=== PATIENT | male | born 1965 | race Caucasian/White ===

== ENCOUNTER 2020-04-03 09:55 | Day surgery (SDC) | payer OTHER ==
[~2020-04-03] VITALS: Ht 177.8 cm; Wt 83.4 kg
[~2020-04-03 09:55] MED LIST: BUPIVACAINE/PF 0.5% ONE; EPINEPHRINE 1 MG/ML, 1ML ONE; LIDOCAINE/PF 1%-EPI 1:200K, 30 ML ONE
[2020-04-03] MEDS ORDERED: LISI5TAB7 PO (10:37)
[2020-04-03] MEDS ORDERED: ROSU40TA PO (10:37)
[2020-04-03] MEDS ORDERED: DAPA10TA PO (10:37)
[2020-04-03] MEDS ORDERED: LACTATED RINGERS 1,000 ML IV SCH ×2 (10:40→11:45)
[2020-04-03 10:51] VITALS: BP 158/91
[2020-04-03] MEDS ORDERED: CHLORHEXIDINE 15 ML UDC MM ONE (11:00)
[2020-04-03] MEDS ORDERED: LIDOCAINE-MPF 1%, 2ML INFIL ONE (11:00)
[2020-04-03] MEDS ORDERED: MIDAZOLAM 1 MG/ML, 2ML ONE (11:16)
[2020-04-03] MEDS ORDERED: FENTANYL PF 100 MCG/2ML ONE (11:16)
[2020-04-03 11:22] LABS: ALBUMIN 4.4 g/dL (3.4-5.0); ANION GAP 9 mmol/L (5-15); CALCIUM 9.3 mg/dL (8.5-10.1); CHLORIDE 109 mmol/L (98-107)
[2020-04-03 11:27] LABS: ALANINE AMINOTRANSFERASE 57 U/L (12-78); ALKALINE PHOSPHATASE 53 U/L (45-117); CREATININE 0.86 mg/dL (0.7-1.3); TOTAL PROTEIN 7.8 g/dL (6.4-8.2)
[2020-04-03] MEDS ORDERED: hydrALAzine 20 MG/ML, 1ML IV PRN (11:30)
[2020-04-03] MEDS ORDERED: OXYcodone 5 MG/5 ML ORAL.SOL UDC PO PRN (11:30)
[2020-04-03] MEDS ORDERED: FENTANYL PF 100 MCG/2ML IV PRN (11:30)
[2020-04-03] MEDS ORDERED: MEPERIDINE/PF 25MG/0.5ML IVPush PRN (11:30)
[2020-04-03] MEDS ORDERED: MIDAZOLAM 1 MG/ML, 2ML IV PRN (11:30)
[2020-04-03] MEDS ORDERED: PROMETHAZINE 25 MG/ML, 1ML IVPush PRN (11:30)
[2020-04-03] MEDS ORDERED: HYDROmorphone 1 MG/ML, 1ML INJ IVPush PRN (11:30)
[2020-04-03] MEDS ORDERED: ACETAMINOPHEN 325 MG TABLET PO PRN (11:30)
[2020-04-03] MEDS ORDERED: LABETALOL 5MG/ML, 20ML IV PRN (11:30)
[2020-04-03] MEDS ORDERED: ALBUTEROL SULFATE 2.5 MG/3 ML NPPB PRN (11:30)
[2020-04-03] MEDS ORDERED: KETOROLAC 30 MG/1 ML ONE (11:42)
[2020-04-03] MEDS ORDERED: BUPIVACAINE/PF-EPI 0.5% 1:200K INFIL ONE (11:58)
[2020-04-03] MEDS ORDERED: LIDOCAINE/PF 1%-EPI 1:200K, 30 ML INFIL ONE (11:58)
[2020-04-03] MEDS ORDERED: ONDANSETRON 2MG/ML, 2ML ONE (12:11)
[2020-04-03] MEDS ORDERED: ROCURONIUM 10MG/ML,5ML ONE (12:11)
[2020-04-03] MEDS ORDERED: DEXAMETHASONE 4 MG/ML, 1ML ONE (12:11)
[2020-04-03] MEDS ORDERED: CEFAZOLIN 1,000 MG ONE (12:11)
[2020-04-03] MEDS ORDERED: BUPIVACAINE/PF 0.5% ONE (12:11)
[2020-04-03] MEDS ORDERED: PROPOFOL 10 MG/ML, 20ML ONE (12:11)
[2020-04-03] MEDS ORDERED: SUCCINYLCHOLINE 20 MG/ML, 10ML ONE (12:12)
[2020-04-03] MEDS ORDERED: CLINDAMYCIN 150 MG/ML, 6ML ONE (12:30)
[2020-04-03] MEDS ORDERED: ATORVASTATIN 80 MG TABLET PO SCH (21:00)
[2020-04-04] MEDS ORDERED: LISINOPRIL 5 MG TABLET PO SCH (09:00)
[2020-04-04] MEDS ORDERED: Dapagliflozin Propanediol (Farxiga) 10 MG HOMEMEDPO SCH (09:00)
== END 2020-04-03 14:55 | disposition home or self-care (01) ==
LOC: OUT 09:55
PROVIDERS: ATTEND Orthopaedic Surgery
DX: S43.431A Superior glenoid labrum lesion of right shoulder, initial encounter (principal); Z11.59 Encounter for screening for other viral diseases; M75.41 Impingement syndrome of right shoulder; M65.811 Other synovitis and tenosynovitis, right shoulder; M75.21 Bicipital tendinitis, right shoulder; E11.9 Type 2 diabetes mellitus without complications; I10 Essential (primary) hypertension; E78.5 Hyperlipidemia, unspecified; Z79.899 Other long term (current) drug therapy; Z87.891 Personal history of nicotine dependence; Z88.8 Allergy status to other drugs, medicaments and biological substances; Z98.890 Other specified postprocedural states; Z82.61 Family history of arthritis; Z82.49 Family history of ischemic heart disease and other diseases of the circulatory system; X58.XXXA Exposure to other specified factors, initial encounter; Y93.89 Activity, other specified; Y92.89 Other specified places as the place of occurrence of the external cause; Y99.8 Other external cause status
CPT/HCPCS: 23430; 29823; 29826; 64415; 80053; 82962; C1713; J0171; J0330; J0690; J1100; J1885; J2250; J2405; J2704; J3010; J3490; J7120; U0001

== ENCOUNTER → 2020-06-17 | Outpatient (CLI) | payer OTHER ==
[~2020-06-17] MED LIST changes: -BUPIVACAINE/PF 0.5% ONE; +DAPA10TA PO; -EPINEPHRINE 1 MG/ML, 1ML ONE; -LIDOCAINE/PF 1%-EPI 1:200K, 30 ML ONE; +LISI5TAB7 PO; +ROSU40TA PO
== END | disposition home or self-care (01) ==
LOC: CVU 16:02
PROVIDERS: ATTEND Registered Nurse
DX: I35.8 Other nonrheumatic aortic valve disorders (principal); R94.31 Abnormal electrocardiogram [ECG] [EKG]
CPT/HCPCS: 93306